=== PATIENT | male | born 1955 | race Caucasian/White ===

== ENCOUNTER 2017-02-16 06:41 | Observation (INO) | payer MEDICAID, OTHER ==
[2017-02-13 10:21] VITALS: BP 156/92
[2017-02-13 10:58] LABS: PATH.CAST-FLAG NOT PRESENT; SPERM-FLAG NOT PRESENT; SRC-FLAG NOT PRESENT; XTAL-FLAG NOT PRESENT; YLC-FLAG NOT PRESENT
[2017-02-13 10:58] LABS: HEMATOCRIT 50.6 % (39.2-51.8); HEMOGLOBIN 17.3 g/dL (13.7-18.0); WHITE BLOOD COUNT 8.9 x10^3/uL (3.4-10)
[2017-02-13 11:11] LABS: BLOOD UREA NITROGEN 25 mg/dL (7-18)
[2017-02-13 11:16] LABS: ASPARTATE AMINO TRANSFERASE 34 U/L (15-37)
[~2017-02-16] VITALS: Ht 180.3 cm; Wt 109.1 kg
[~2017-02-16 06:41] MED LIST: ALLO100T30 PO; AMLO10TA2 PO; CAND32TA7 PO; DILT180C72 PO; HYDR-3307 PO; METH750T87 PO; NABU750T PO; SPIR1TAB3 PO
[2017-02-16] MEDS ORDERED: LACTATED RINGERS 1,000 ML IV SCH (07:42)
[2017-02-16] MEDS ORDERED: LIDOCAINE 1%, 2ML ONE (07:44)
[2017-02-16] MEDS ORDERED: LIDOCAINE 1%, 2ML SQ PRN (08:00)
[2017-02-16] MEDS ORDERED: LIDOCAINE/MPF 2%-EPI 1:200K, 20 ML ONE (08:21)
[2017-02-16] MEDS ORDERED: VANCOMYCIN 1,000 MG ONE (08:21)
[2017-02-16] MEDS ORDERED: BUPIVACAINE/PF 0.5% ONE (08:21)
[2017-02-16] MEDS ORDERED: THROMBIN 5,000 UNIT VIAL TP ONE (08:21)
[2017-02-16] MEDS ORDERED: TRANEXAMIC ACID 100 MG/ML, 10ML ONE ×2 (08:21→08:35)
[2017-02-16] MEDS ORDERED: FENTANYL PF 100 MCG/2ML ONE ×3 (08:23)
[2017-02-16] MEDS ORDERED: MIDAZOLAM 1 MG/ML, 2ML ONE (08:25)
[2017-02-16] MEDS ORDERED: ONDANSETRON 2MG/ML, 2ML ONE (08:36)
[2017-02-16] MEDS ORDERED: GLYCOPYRROLATE 0.2MG/1ML ONE (08:36)
[2017-02-16] MEDS ORDERED: DEXAMETHASONE 4 MG/ML, 1ML ONE (08:36)
[2017-02-16] MEDS ORDERED: PROPOFOL 10 MG/ML, 20ML ONE (08:36)
[2017-02-16] MEDS ORDERED: NEOSTIGMINE 1 MG/ML, 10ML ONE (08:36)
[2017-02-16] MEDS ORDERED: ROCURONIUM 10 MG/ML ONE (08:36)
[2017-02-16] MEDS ORDERED: CEFAZOLIN 1,000 MG ONE (08:36)
[2017-02-16] MEDS ORDERED: BUPIVACAINE LIPOSOME/PF INFIL ONE ×2 (08:58→09:20)
[2017-02-16] MEDS ORDERED: ONDANSETRON 2MG/ML, 2ML IVPush PRN (12:30)
[2017-02-16] MEDS ORDERED: morphine SULFATE 10 MG/ML, 1ML IVPush PRN (12:30)
[2017-02-16] MEDS ORDERED: METHOCARBAMOL 750 MG TABLET PO PRN (12:30)
[2017-02-16] MEDS ORDERED: CEFAZOLIN 1,000 MG IM SCH (12:30)
[2017-02-16] MEDS: OXYcodone/APAP 5/325MG TABLET PO PRN ×2 (16:54→21:16)
[2017-02-16 20:15] VITALS: BP 132/82
[2017-02-16] MEDS: DOCUSATE 100 MG CAPSULE PO SCH (21:18)
[2017-02-16] MEDS: CEFAZOLIN PMX 2GM/50ML 50 ML IVPB SCH (21:31)
[2017-02-17] MEDS: OXYcodone/APAP 5/325MG TABLET PO PRN ×3 (01:38→10:28)
[2017-02-17 01:40] VITALS: BP 120/69
[2017-02-17] MEDS: CEFAZOLIN PMX 2GM/50ML 50 ML IVPB SCH (02:42)
[2017-02-17 07:24] VITALS: BP 134/71
[2017-02-17] MEDS ORDERED: DILTIAZEM CD 180 MG CAP.ER.24H PO SCH (09:00)
[2017-02-17] MEDS ORDERED: ALLOPURINOL 100 MG TABLET PO SCH (09:00)
[2017-02-17] MEDS: DOCUSATE 100 MG CAPSULE PO SCH (09:00)
[2017-02-17] MEDS ORDERED: SPIRONOLACT/HCTZ 25/25MG TABLET PO SCH (09:00)
[2017-02-17] MEDS ORDERED: CANDESARTAN CILEXETIL 32 MG PO SCH (09:00)
[2017-02-17] MEDS ORDERED: NABUMETONE 500 MG TABLET PO SCH (09:00)
[2017-02-17] MEDS ORDERED: AMLODIPINE 5 MG TABLET PO SCH (09:00)
[2017-02-17] MEDS ORDERED: LOSARTAN 50MG TABLET PO SCH (09:00)
[2017-02-17 11:14] VITALS: BP 119/75
== END 2017-02-17 11:20 | disposition home or self-care (01) ==
LOC: OUT 06:41 → ORIP 12:29 → 4NOR 13:19
PROVIDERS: ADMIT Orthopaedic Surgery Orthopaedic Surgery of the Spine; ATTEND Orthopaedic Surgery Orthopaedic Surgery of the Spine
DX: M48.06 Spinal stenosis, lumbar region (principal); R53.1 Weakness; R20.0 Anesthesia of skin
CPT/HCPCS: 36415; 63047; 63048; 71020; 72100; 80053; 81001; 85025; 93005; 96365; 96375; C9290; G0378; J0690; J1100; J2250; J2405; J2704; J2710; J3010; J3370; J3490; J7120